=== PATIENT | male | born 1960 | race Caucasian/White ===

== ENCOUNTER 2020-12-24 08:26 | Day surgery (SDC) | payer BC ==
[~2020-12-24] VITALS: Ht 180.3 cm; Wt 81.6 kg
[~2020-12-24 08:26] MED LIST: CEPHALEXIN500 M1 PO; CLARITIN; GUAIFEN-PSE 6001 TER PO; LOMOTIL 0.025 M1 TAB PO; PHENERGAN 25 TA25 MG PO
[2020-12-24] MEDS ORDERED: LEVOXYL0.075 MG PO (09:08)
[2020-12-24] MEDS ORDERED: NEXIUM 24HR20 M1 PO (09:09)
[2020-12-24] MEDS ORDERED: IRON PO (09:11)
[2020-12-24] MEDS ORDERED: THERA TEARS OP (09:12)
--- NOTE | 2020-12-24 09:20 | NUR ---
PATIENT AND AMBULATED IN TO ENDO UNIT. PATIENT IS ALERT AND ORIENTED X 4. CONSENT EXPLAINED AND PATIENT SIGNED. ASSESSMENT COMPLETED. LUNGS CTA. HEART SOUNDS S1,S2 AND REGULAR. BOWEL SOUNDS HEARD. PEDAL PULSES +2. CALL LIGHT EXPLAINED.
[2020-12-24 09:34] VITALS: BP 107/77; PULSE 56; TEMP 97.1
[2020-12-24 11:20] VITALS: BP 105/85; PULSE 55
--- NOTE | 2020-12-24 11:20 | NUR ---
Patient returned to [facility] via cart. Alert and oriented. Postop vitals started. Cranberry juice and muffin provided. Will continue to monitor.
[2020-12-24 11:35] VITALS: BP 114/83; PULSE 51
--- NOTE | 2020-12-24 11:35 | NUR ---
Patient sitting up in chair. Alert and oriented. Vitals stable. Tolerating food and drink well. Dr in to speak with patient.
[2020-12-24 11:50] VITALS: BP 113/79; PULSE 52
--- NOTE | 2020-12-24 11:50 | NUR ---
Patient sitting up in chair. Alert and oriented. D/C IV with no complications. Reviewed discharge instructions. Patient verbalized understanding. Instucted patient to dress and open door when ready for transport.
--- NOTE | 2020-12-24 12:15 | NUR ---
Patient tranported via wheelchair to personal vehicle accompanied with .
== END 2020-12-24 12:15 | disposition home or self-care (01) ==
LOC: SDCO 08:26
DX: Z12.11 Encounter for screening for malignant neoplasm of colon (principal); K64.0 First degree hemorrhoids; K21.9 Gastro-esophageal reflux disease without esophagitis; D64.9 Anemia, unspecified; E03.9 Hypothyroidism, unspecified; Z20.822 Contact with and (suspected) exposure to COVID-19; Z79.890 Hormone replacement therapy; Z79.899 Other long term (current) drug therapy
CPT/HCPCS: J7120